=== PATIENT | male | born 1940 | race Two or more races ===

== ENCOUNTER 2023-12-12 11:56 | Emergency (ER) | payer OTHER ==
[~2023-12-12] VITALS: Ht 167.6 cm; Wt 52.2 kg
[2023-12-12 12:41] LABS: BASOPHILS % (AUTO) 0.4 % (0.0-2.0); EOSINOPHILS % (AUTO) 0.3 % (0.0-6.0); HEMATOCRIT 46 % (39-51); HEMOGLOBIN 15.3 g/dL (13.5-17.5); LYMPHOCYTES # (AUTO) 1.1 K/uL (0.8-4.8); LYMPHOCYTES % (AUTO) 9.1 % (20.0-44.0); MEAN CORPUSCULAR HEMOGLOBIN 29 PG (26.0-33.0); MEAN CORPUSCULAR HGB CONC 33 g/dl (31.0-36.0); MEAN CORPUSCULAR VOLUME 86 fL (80-96); MONOCYTES # (AUTO) 0.9 K/uL (0.1-1.30); MONOCYTES % (AUTO) 7.4 % (2.0-12.0); NEUTROPHILS # (AUTO) 9.8 K/uL (1.8-8.9); NEUTROPHILS % (AUTO) 82.8 % (43.0-81.0); PLATELET COUNT (AUTO) 186 K/uL (150-450); RED BLOOD CELL COUNT(AUTO) 5.34 MIL/uL (4.5-6.0); WHITE BLOOD COUNT (AUTO) 11.9 K/uL (4.3-11.0)
[2023-12-12 12:47] LABS: CREATININE 1.4 mg/dL (0.6-1.3); GLUCOSE 232 mg/dL (74-106); UREA NITROGEN, BLOOD 17 mg/dL (7-18)
[2023-12-12 12:50] LABS: INR 1.07 (0.91-1.10); PARTIAL THROMBOPLASTIN TIME 29.1 SEC (24.3-34.3); PROTHROMBIN TIME 11.3 SECS (9.2-11.1)
[2023-12-12 12:56] LABS: CARBON DIOXIDE 25 mmol/L (21-32); CHLORIDE 103 mmol/L (98-107); POTASSIUM 4.4 mmol/L (3.5-5.1); SODIUM SERUM 138 mmol/L (136-145)
[2023-12-12] MEDS: IV NS 0.9% 1,000 ML BAG IV ONE (13:01)
[2023-12-12] MEDS ORDERED: IOHEXOL-350 100 ML VIAL IV ONE (13:04)
[2023-12-12] MEDS ORDERED: IV NS 0.9% 250 ML IV ONE (13:05)
[2023-12-12 14:05] LABS: APPEARANCE,URINE SLIGHTLY CLOUDY (CLEAR); BILIRUBIN,URINE NEGATIVE (NEGATIVE); BLOOD, URINE 3+ Ery/uL (NEGATIVE); COLOR,URINE YELLOW (YELLOW); KETONES,URINE TRACE mg/dL (NEGATIVE); LEUKOCYTE ESTERASE ,URINE NEGATIVE (NEGATIVE); NITRITE, URINE NEGATIVE (NEGATIVE); PH,URINE 6.5 (5.0-8.0); PROTEIN,URINE 1+ mg/dl (NEGATIVE); UGLUCOSE NEGATIVE (NEGATIVE)
[2023-12-12 14:12] LABS: ADD URINE CULTURE NO; BACTERIA,URINE Rare /HPF (None Seen); RBC,URINE 21-50 /HPF (0-2); SQUAMOUS EPITHELIAL CELL,UR Rare /HPF (None Seen)
[2023-12-12 16:26] VITALS: BP 130/66; TEMP 99.3; O2SAT 99
[2023-12-13] MEDS ORDERED: DOCU100C36 PO (16:01)
[2023-12-13] MEDS ORDERED: ACET325T53 PO (16:01)
[2023-12-13] MEDS ORDERED: LISI-768 PO (16:01)
[2023-12-13] MEDS ORDERED: GABA-532 PO (16:01)
[2023-12-13] MEDS ORDERED: MULT-225 PO (16:01)
[2023-12-13] MEDS ORDERED: BISA10SU11 RC (16:01)
[2023-12-13] MEDS ORDERED: METF-440 PO (16:01)
[2023-12-13] MEDS ORDERED: GLIP5TAB13 PO (16:01)
[2023-12-13] MEDS ORDERED: ASPI-1420 PO (16:01)
[2023-12-13] MEDS ORDERED: INSU100I40 SQ (16:01)
[2023-12-13] MEDS ORDERED: CYAN100096 PO (16:01)
[2023-12-13] MEDS ORDERED: CARV6.252 PO (16:01)
[2023-12-13] MEDS ORDERED: ACET650S11 RC (16:01)
[2023-12-13] MEDS ORDERED: GLUC1KIT IJ (16:01)
[2023-12-13] MEDS ORDERED: TICA90TA PO (16:01)
[2023-12-13] MEDS ORDERED: HYDR12.55 PO (16:01)
[2023-12-16] MEDS ORDERED: LEVO500T90 PO (12:15)
== END 2023-12-12 16:27 ==
LOC: ER 11:58
DX: R31.9 Hematuria, unspecified (principal); I10 Essential (primary) hypertension; E11.9 Type 2 diabetes mellitus without complications; E78.5 Hyperlipidemia, unspecified; Z87.39 Personal history of other diseases of the musculoskeletal system and connective tissue
CPT/HCPCS: 99285; 74178; 96360; 85025; 80048; 81001; 36415; 85730; J7030; J7050; Q9967

== ENCOUNTER 2023-12-13 15:19 | Inpatient (IN) | payer OTHER ==
[~2023-12-13] VITALS: Ht 167.6 cm; Wt 67.1 kg
[2023-12-13] MEDS: VANCOMYCIN 1 GM in IV D5W 250 ML IV ONE (16:00)
[2023-12-13] MEDS ORDERED: GLUC1KIT IJ (16:01)
[2023-12-13] MEDS ORDERED: CYAN100096 PO (16:01)
[2023-12-13] MEDS ORDERED: GABA-532 PO (16:01)
[2023-12-13] MEDS ORDERED: TICA90TA PO (16:01)
[2023-12-13] MEDS ORDERED: CARV6.252 PO (16:01)
[2023-12-13] MEDS ORDERED: ACET650S11 RC (16:01)
[2023-12-13] MEDS ORDERED: ACET325T53 PO (16:01)
[2023-12-13] MEDS ORDERED: BISA10SU11 RC (16:01)
[2023-12-13] MEDS ORDERED: DOCU100C36 PO (16:01)
[2023-12-13] MEDS ORDERED: INSU100I40 SQ (16:01)
[2023-12-13] MEDS ORDERED: LISI-768 PO (16:01)
[2023-12-13] MEDS ORDERED: ASPI-1420 PO (16:01)
[2023-12-13] MEDS ORDERED: GLIP5TAB13 PO (16:01)
[2023-12-13] MEDS ORDERED: MULT-225 PO (16:01)
[2023-12-13] MEDS ORDERED: HYDR12.55 PO (16:01)
[2023-12-13] MEDS ORDERED: METF-440 PO (16:01)
[2023-12-13 16:21] LABS: BASOPHILS # (AUTO) 0.1 K/uL (0.0-0.2); BASOPHILS % (AUTO) 0.4 % (0.0-2.0); EOSINOPHILS % (AUTO) 0.2 % (0.0-6.0); HEMATOCRIT 43 % (39-51); HEMOGLOBIN 14.3 g/dL (13.5-17.5); LYMPHOCYTES # (AUTO) 1.1 K/uL (0.8-4.8); LYMPHOCYTES % (AUTO) 7.8 % (20.0-44.0); MEAN CORPUSCULAR HEMOGLOBIN 29 PG (26.0-33.0); MEAN CORPUSCULAR HGB CONC 33 g/dl (31.0-36.0); MEAN CORPUSCULAR VOLUME 87 fL (80-96); MONOCYTES # (AUTO) 1.2 K/uL (0.1-1.30); MONOCYTES % (AUTO) 8.5 % (2.0-12.0); NEUTROPHILS # (AUTO) 11.4 K/uL (1.8-8.9); NEUTROPHILS % (AUTO) 83.1 % (43.0-81.0); PLATELET COUNT (AUTO) 165 K/uL (150-450); RED BLOOD CELL COUNT(AUTO) 4.99 MIL/uL (4.5-6.0); RED CELL DISTRIBUTION WIDTH 15.2 % (11.5-15.0); WHITE BLOOD COUNT (AUTO) 13.7 K/uL (4.3-11.0)
[2023-12-13 16:28] LABS: CALCIUM, SERUM 8.9 mg/dL (8.5-10.1); CARBON DIOXIDE 25 mmol/L (21-32); CHLORIDE 104 mmol/L (98-107); CREATININE 1.6 mg/dL (0.6-1.3); GLUCOSE 168 mg/dL (74-106); POTASSIUM 3.9 mmol/L (3.5-5.1); SODIUM SERUM 137 mmol/L (136-145); UREA NITROGEN, BLOOD 23 mg/dL (7-18)
[2023-12-13] MEDS: CEFEPIME 1 GM in IV D5W 50 ML IV ONE (16:41)
[2023-12-13] MEDS: IV NS 0.9% 1,000 ML BAG IV ONE (16:42)
[2023-12-13 18:27] LABS: BILIRUBIN,URINE LARGE (NEGATIVE); BLOOD, URINE Large Ery/uL (NEGATIVE); COLOR,URINE YELLOW (YELLOW); KETONES,URINE 15 mg/dL (NEGATIVE); LEUKOCYTE ESTERASE ,URINE Trace (NEGATIVE); NITRITE, URINE Positive (NEGATIVE); PH,URINE 5.5 (5.0-8.0); PROTEIN,URINE >=300 mg/dl (NEGATIVE); UGLUCOSE 100 MG/DL mg/dL (NEGATIVE)
[2023-12-13 18:33] LABS: APPEARANCE,URINE HAZY (CLEAR)
[2023-12-13 18:57] LABS: RBC,URINE TOO NUMEROUS TO COUN /HPF (0-2)
[2023-12-13 18:58] LABS: ADD URINE CULTURE YES; BACTERIA,URINE Moderate /HPF (None Seen); SQUAMOUS EPITHELIAL CELL,UR None Seen /HPF (None Seen)
[2023-12-13 21:30] VITALS: BP 119/48; TEMP 99.1; O2SAT 99
[2023-12-13] MEDS ORDERED: GABAPENTIN 100 MG CAPSULE PO SCH (22:00)
[2023-12-13] MEDS ORDERED: ACETAMINOPHEN 325 MG TABLET PO PRN (22:00)
[2023-12-13] MEDS ORDERED: ONDANSETRON HCL/PF 4 MG/2 ML VIAL IVP PRN (22:00)
[2023-12-13] MEDS ORDERED: CARVEDILOL 6.25 MG TABLET PO SCH (22:00)
[2023-12-13 22:20] LABS: BILIRUBIN,TOTAL 2.2 mg/dL (0.2-1.0); TOTAL PROTEIN, SERUM 7.6 g/dL (6.4-8.2)
[2023-12-13] MEDS: IV NS 0.9% 1,000 ML IV PRN (22:57)
[2023-12-13] MEDS ORDERED: VANCOMYCIN 1 GM in IV D5W 250ml IV ONE (23:00)
[2023-12-13] MEDS: DOCUSATE SODIUM 100 MG CAPSULE PO SCH (23:18)
[2023-12-13] MEDS: glipiZIDE 5 MG TABLET PO SCH (23:18)
[2023-12-13] MEDS: BLOOD SUGAR DIAGNOSTIC 1 EACH STRIP IN SCH (23:23)
[2023-12-13] MEDS: INSULIN REGULAR, HUMAN 100 UNIT/ML 3 ML VIAL SQ PRN (23:24)
[2023-12-14 06:47] LABS: BASOPHILS % (AUTO) 0.1 % (0.0-2.0); EOSINOPHILS # (AUTO) 0.1 K/uL (0.0-0.7); EOSINOPHILS % (AUTO) 1.2 % (0.0-6.0); HEMATOCRIT 36 % (39-51); HEMOGLOBIN 12.4 g/dL (13.5-17.5); LYMPHOCYTES # (AUTO) 0.7 K/uL (0.8-4.8); LYMPHOCYTES % (AUTO) 9.6 % (20.0-44.0); MEAN CORPUSCULAR HEMOGLOBIN 30 PG (26.0-33.0); MEAN CORPUSCULAR HGB CONC 35 g/dl (31.0-36.0); MEAN CORPUSCULAR VOLUME 87 fL (80-96); MONOCYTES # (AUTO) 0.6 K/uL (0.1-1.30); MONOCYTES % (AUTO) 8.3 % (2.0-12.0); NEUTROPHILS # (AUTO) 5.8 K/uL (1.8-8.9); NEUTROPHILS % (AUTO) 80.8 % (43.0-81.0); PLATELET COUNT (AUTO) 123 K/uL (150-450); RED BLOOD CELL COUNT(AUTO) 4.14 MIL/uL (4.5-6.0); RED CELL DISTRIBUTION WIDTH 14.9 % (11.5-15.0); WHITE BLOOD COUNT (AUTO) 7.2 K/uL (4.3-11.0)
[2023-12-14 07:16] LABS: CALCIUM, SERUM 8.1 mg/dL (8.5-10.1); MAGNESIUM 1.9 mg/dL (1.8-2.4); PHOSPHORUS 1.9 mg/dL (2.5-4.9); POTASSIUM 3.4 mmol/L (3.5-5.1)
[2023-12-14 08:00] VITALS: BP 119/53; TEMP 98.2; O2SAT 99
[2023-12-14] MEDS: CYANOCOBALAMIN 500 MCG TABLET PO SCH (09:00)
[2023-12-14] MEDS: GABAPENTIN 100 MG CAPSULE PO SCH (09:00)
[2023-12-14] MEDS: LISINOPRIL (5MG) 5 MG TABLET PO SCH (09:00)
[2023-12-14] MEDS ORDERED: CEFEPIME 1 GM VIAL IM SCH ×2 (09:00→22:41)
[2023-12-14] MEDS: MULTIVIT W/MINERALS 1 TAB TABLET PO SCH (09:00)
[2023-12-14] MEDS: CARVEDILOL 6.25 MG TABLET PO SCH (09:00)
[2023-12-14] MEDS: HYDROCHLOROTHIAZIDE 25 MG TABLET PO SCH (09:00)
[2023-12-14] MEDS: CEFEPIME 1 GM in IV D5W 50 ML IV SCH (09:29)
[2023-12-14] MEDS: POTASSIUM CHLORIDE 20 MEQ TAB.PRT.SR PO SCH (10:00)
[2023-12-14] MEDS: K PHOS NEUTRAL 250 MG TABLET PO ONE (15:25)
[2023-12-14] MEDS: VANCOMYCIN 750 MG in IV D5W 250 ML IV SCH (15:29)
[2023-12-14 16:00] VITALS: BP 143/62; TEMP 99.3; O2SAT 99
[2023-12-14 20:00] VITALS: BP 119/51; TEMP 99; O2SAT 99
[2023-12-15] MEDS: DEXTROSE 50%-WATER 50 ML DISP.SYRIN IV PRN (06:33)
[2023-12-15 07:00] VITALS: BP 114/48; TEMP 98.8; O2SAT 100
[2023-12-15 07:04] LABS: BASOPHILS % (AUTO) 0.4 % (0.0-2.0); EOSINOPHILS # (AUTO) 0.1 K/uL (0.0-0.7); EOSINOPHILS % (AUTO) 2.2 % (0.0-6.0); HEMATOCRIT 34 % (39-51); HEMOGLOBIN 11.8 g/dL (13.5-17.5); LYMPHOCYTES # (AUTO) 0.6 K/uL (0.8-4.8); LYMPHOCYTES % (AUTO) 17.1 % (20.0-44.0); MEAN CORPUSCULAR HEMOGLOBIN 30 PG (26.0-33.0); MEAN CORPUSCULAR HGB CONC 35 g/dl (31.0-36.0); MEAN CORPUSCULAR VOLUME 86 fL (80-96); MONOCYTES # (AUTO) 0.5 K/uL (0.1-1.30); NEUTROPHILS # (AUTO) 2.4 K/uL (1.8-8.9); NEUTROPHILS % (AUTO) 66.3 % (43.0-81.0); PLATELET COUNT (AUTO) 134 K/uL (150-450); RED BLOOD CELL COUNT(AUTO) 3.96 MIL/uL (4.5-6.0); RED CELL DISTRIBUTION WIDTH 14.9 % (11.5-15.0); WHITE BLOOD COUNT (AUTO) 3.7 K/uL (4.3-11.0)
[2023-12-15 07:12] LABS: ALBUMIN 1.9 g/dL (3.4-5.0); BILIRUBIN,DIRECT 0.5 mg/dL (0.0-0.2); TOTAL PROTEIN, SERUM 5.5 g/dL (6.4-8.2)
[2023-12-15 07:20] LABS: CALCIUM, SERUM 7.6 mg/dL (8.5-10.1); CREATININE 0.8 mg/dL (0.6-1.3); MAGNESIUM 1.7 mg/dL (1.8-2.4); PHOSPHORUS 2.6 mg/dL (2.5-4.9); POTASSIUM 3.1 mmol/L (3.5-5.1)
[2023-12-15] MEDS: POTASSIUM CHLORIDE 20 MEQ POWDER PACKET PO ONE (08:38)
[2023-12-15] MEDS: MAGNESIUM OXIDE 400 MG TABLET PO ONE (08:42)
[2023-12-15 16:00] VITALS: BP 125/53; TEMP 98.4; O2SAT 98
[2023-12-15 20:00] VITALS: BP 120/76; TEMP 98.8; O2SAT 99
[2023-12-15 20:17] VITALS: BP 120/76; TEMP 98.8; O2SAT 99
[2023-12-16] MEDS: VANCOMYCIN 750 MG in IV D5W 250 ML IV SCH (03:05)
[2023-12-16 06:45] LABS: CALCIUM, SERUM 7.3 mg/dL (8.5-10.1); CREATININE 0.8 mg/dL (0.6-1.3); POTASSIUM 3.1 mmol/L (3.5-5.1)
[2023-12-16 07:00] VITALS: BP 118/63; TEMP 97.7; O2SAT 98
[2023-12-16] MEDS: POTASSIUM CHLORIDE 20 MEQ POWDER PACKET PO ONE (08:40)
[2023-12-16] MEDS ORDERED: LEVO500T90 PO (12:15)
[2023-12-16 16:30] VITALS: BP 124/56
== END 2023-12-16 17:37 | DRG 689 ==
LOC: ER 15:23 → MED 20:25
PROVIDERS: ADMIT Nurse Practitioner Acute Care; ATTEND Nurse Practitioner Acute Care
DX: N39.0 Urinary tract infection, site not specified (principal); N17.0 Acute kidney failure with tubular necrosis; N13.8 Other obstructive and reflux uropathy; N40.1 Benign prostatic hyperplasia with lower urinary tract symptoms; Z86.73 Personal history of transient ischemic attack (TIA), and cerebral infarction without residual deficits; B96.89 Other specified bacterial agents as the cause of diseases classified elsewhere; K76.9 Liver disease, unspecified; E11.40 Type 2 diabetes mellitus with diabetic neuropathy, unspecified; D64.9 Anemia, unspecified; K80.20 Calculus of gallbladder without cholecystitis without obstruction; M89.8X9 Other specified disorders of bone, unspecified site; E78.5 Hyperlipidemia, unspecified; E87.6 Hypokalemia; I10 Essential (primary) hypertension; Z79.4 Long term (current) use of insulin; Z79.84 Long term (current) use of oral hypoglycemic drugs; Z79.899 Other long term (current) drug therapy; R74.01 Elevation of levels of liver transaminase levels; R31.9 Hematuria, unspecified
CPT/HCPCS: 36415; 80048-TC; 80076-TC; 80202-TC; 81001; 82962-TC; 83735-TC; 84100-TC; 85025-TC; 87040-TC; 87081-TC; 87086-TC; 92526; 92611-TC; A4223; G0378; J0692; J1815; J3370; J3371; J7030; J7060

== ENCOUNTER 2024-11-09 18:18 | Inpatient (IN) | payer OTHER ==
[~2024-11-09] VITALS: Ht 165.1 cm; Wt 67.4 kg
[~2024-11-09 18:18] MED LIST: ACET325T53 PO; ACET650S11 RC; ASPI-1420 PO; BISA10SU11 RC; CARV6.252 PO; CYAN100096 PO; DOCU100C36 PO; GABA-532 PO; GLIP5TAB13 PO; GLUC1KIT IJ; HYDR12.55 PO; INSU100I40 SQ; LEVO500T90 PO; LISI-768 PO; METF-440 PO; MULT-225 PO; TICA90TA PO
[2024-11-09] MEDS ORDERED: VITS42.53 TP (19:34)
[2024-11-09] MEDS: IV NS 0.9% 1,000 ML BAG IV ONE ×2 (19:35→21:31)
[2024-11-09 19:50] LABS: BASOPHILS % (AUTO) 0.5 % (0.0-2.0); EOSINOPHILS # (AUTO) 0.5 K/uL (0.0-0.7); EOSINOPHILS % (AUTO) 8.5 % (0.0-6.0); HEMATOCRIT 44 % (39-51); HEMOGLOBIN 14.6 g/dL (13.5-17.5); LYMPHOCYTES # (AUTO) 1.2 K/uL (0.8-4.8); LYMPHOCYTES % (AUTO) 22.1 % (20.0-44.0); MEAN CORPUSCULAR HEMOGLOBIN 29 PG (26.0-33.0); MEAN CORPUSCULAR HGB CONC 33 g/dl (31.0-36.0); MEAN CORPUSCULAR VOLUME 88 fL (80-96); MONOCYTES # (AUTO) 0.7 K/uL (0.1-1.30); NEUTROPHILS # (AUTO) 3.2 K/uL (1.8-8.9); NEUTROPHILS % (AUTO) 56.9 % (43.0-81.0); PLATELET COUNT (AUTO) 204 K/uL (150-450); RED BLOOD CELL COUNT(AUTO) 5.04 MIL/uL (4.5-6.0); RED CELL DISTRIBUTION WIDTH 15.6 % (11.5-15.0); WHITE BLOOD COUNT (AUTO) 5.6 K/uL (4.3-11.0)
[2024-11-09 20:02] LABS: INR 1.01 (0.91-1.10); PARTIAL THROMBOPLASTIN TIME 26.8 SEC (24.3-34.3); PROTHROMBIN TIME 10.7 SECS (9.2-11.1)
[2024-11-09 20:13] LABS: LACTIC ACID 5.2 mmol/L (0.4-2.0)
[2024-11-09 20:20] LABS: CALCIUM, SERUM 9.1 mg/dL (8.5-10.1); CARBON DIOXIDE 22 mmol/L (21-32); CHLORIDE 104 mmol/L (98-107); CREATININE 1.1 mg/dL (0.6-1.3); GLUCOSE 112 mg/dL (74-106); POTASSIUM 4.2 mmol/L (3.5-5.1); SODIUM SERUM 138 mmol/L (136-145); UREA NITROGEN, BLOOD 13 mg/dL (7-18)
[2024-11-09] MEDS: PIPERACILLIN /TAZOBACTAM 3.375 G in IV D5W 50 ML IV ONE (21:00)
[2024-11-09] MEDS ORDERED: VANCOMYCIN 1 GM /D5W 250 ML PB IV ONE (21:30)
[2024-11-09] MEDS ORDERED: PIPERACI/TAZO 3.375GM/D5W 50ML PB IV ONE (21:30)
[2024-11-09] MEDS: VANCOMYCIN 1 GM in IV D5W 250 ML IV ONE (21:33)
[2024-11-09 21:56] LABS: BILIRUBIN,DIRECT 0.2 mg/dL (0.0-0.2); BILIRUBIN,TOTAL 0.5 mg/dL (0.2-1.0)
[2024-11-09] MEDS ORDERED: MAGNESIUM HYDROXIDE 30 ML UDC PO PRN (22:30)
[2024-11-09] MEDS ORDERED: ACETAMINOPHEN 325 MG TABLET PO PRN (22:30)
[2024-11-09] MEDS ORDERED: DEXTROSE 50%-WATER 50 ML DISP.SYRIN IV PRN (22:30)
[2024-11-09] MEDS ORDERED: ONDANSETRON HCL/PF 4 MG/2 ML VIAL IVP PRN (22:30)
[2024-11-09] MEDS ORDERED: HYDROCODONE/APAP 5/325MG TABLET PO PRN (22:30)
[2024-11-09] MEDS ORDERED: MAG HYDROX/AL HYDROX/SIMETH 30 ML UDC PO PRN (22:30)
[2024-11-10 01:25] VITALS: BP 139/64; TEMP 97.9; O2SAT 98
[2024-11-10] MEDS: IV NS 0.9% 1,000 ML IV PRN (03:21)
[2024-11-10] MEDS: BLOOD SUGAR DIAGNOSTIC 1 EACH STRIP IN SCH (06:37)
[2024-11-10] MEDS: INSULIN REGULAR, HUMAN 100 UNIT/ML 3 ML VIAL SQ PRN (06:37)
[2024-11-10 07:56] LABS: BASOPHILS % (AUTO) 0.6 % (0.0-2.0); EOSINOPHILS # (AUTO) 0.6 K/uL (0.0-0.7); EOSINOPHILS % (AUTO) 10.7 % (0.0-6.0); HEMATOCRIT 41 % (39-51); HEMOGLOBIN 13.8 g/dL (13.5-17.5); LYMPHOCYTES # (AUTO) 1.2 K/uL (0.8-4.8); LYMPHOCYTES % (AUTO) 21.3 % (20.0-44.0); MEAN CORPUSCULAR HEMOGLOBIN 29 PG (26.0-33.0); MEAN CORPUSCULAR HGB CONC 34 g/dl (31.0-36.0); MEAN CORPUSCULAR VOLUME 86 fL (80-96); MONOCYTES # (AUTO) 0.8 K/uL (0.1-1.30); MONOCYTES % (AUTO) 15.1 % (2.0-12.0); NEUTROPHILS # (AUTO) 2.9 K/uL (1.8-8.9); NEUTROPHILS % (AUTO) 52.3 % (43.0-81.0); PLATELET COUNT (AUTO) 181 K/uL (150-450); RED BLOOD CELL COUNT(AUTO) 4.84 MIL/uL (4.5-6.0); RED CELL DISTRIBUTION WIDTH 14.9 % (11.5-15.0); WHITE BLOOD COUNT (AUTO) 5.5 K/uL (4.3-11.0)
[2024-11-10 08:00] VITALS: BP 97/75; TEMP 98.3; O2SAT 94
[2024-11-10] MEDS: GLUCERNA SHAKE 237 ML CAN PO SCH (08:00)
[2024-11-10 08:05] LABS: CALCIUM, SERUM 8.5 mg/dL (8.5-10.1); CARBON DIOXIDE 24 mmol/L (21-32); CHLORIDE 108 mmol/L (98-107); CREATININE 0.9 mg/dL (0.6-1.3); GLUCOSE 71 mg/dL (74-106); POTASSIUM 3.8 mmol/L (3.5-5.1); SODIUM SERUM 140 mmol/L (136-145); UREA NITROGEN, BLOOD 11 mg/dL (7-18)
[2024-11-10] MEDS: CARVEDILOL 6.25 MG TABLET PO SCH (09:00)
[2024-11-10] MEDS: PANTOPRAZOLE 40 MG TABLET.DR PO SCH (09:06)
[2024-11-10] MEDS: TICAGRELOR 90 MG TABLET PO SCH (09:06)
[2024-11-10] MEDS: GABAPENTIN 100 MG CAPSULE PO SCH (09:07)
[2024-11-10] MEDS: CYANOCOBALAMIN 500 MCG TABLET PO SCH (09:08)
[2024-11-10] MEDS: LISINOPRIL (5MG) 5 MG TABLET PO SCH (09:08)
[2024-11-10 11:55] LABS: EOSINOPHILS % (MANUAL) 5 % (0-4); LYMPHOCYTES % (MANUAL) 12 % (16-48); MONOCYTES % (MANUAL) 6 % (0-11.0); NEUTROPHILS % (MANUAL) 77 (42-76)
[2024-11-10 11:58] LABS: PLATELET ESTIMATE ADEQUATE
[2024-11-10 16:00] VITALS: BP 100/71; TEMP 98.5; O2SAT 96
[2024-11-10 20:00] VITALS: BP 131/57; TEMP 97.5; O2SAT 99
[2024-11-10] MEDS: VANCOMYCIN 1 GM in IV D5W 250ml IV SCH (20:15)
[2024-11-11 07:00] LABS: CALCIUM, SERUM 8.3 mg/dL (8.5-10.1); POTASSIUM 3.7 mmol/L (3.5-5.1)
[2024-11-11 08:00] VITALS: BP 136/51; TEMP 97.9; O2SAT 98
[2024-11-11] MEDS: Z GUARD REMEDY 4 OZ OINT TP PRN (09:34)
[2024-11-11 16:00] VITALS: BP 130/56; TEMP 97.9; O2SAT 96
[2024-11-11 20:00] VITALS: BP 139/70; TEMP 98.4; O2SAT 100
[2024-11-11 21:27] VITALS: BP 139/70; TEMP 98.4; O2SAT 100
[2024-11-12 06:58] LABS: CALCIUM, SERUM 8.3 mg/dL (8.5-10.1); CREATININE 0.8 mg/dL (0.6-1.3); POTASSIUM 3.1 mmol/L (3.5-5.1)
[2024-11-12 08:34] VITALS: BP 148/68; TEMP 98.1; O2SAT 100
[2024-11-12] MEDS: POTASSIUM CHLORIDE 20 MEQ TAB.PRT.SR PO SCH (09:56)
[2024-11-12 12:04] LABS: THYROID STIMULATING HORMONE 1.84 uIU/mL (0.358-3.74)
[2024-11-12] MEDS: VANCOMYCIN 750 MG in IV D5W 250 ML IV SCH (12:10)
[2024-11-12 16:06] VITALS: BP 135/52; TEMP 97.9; O2SAT 100
[2024-11-12 20:00] VITALS: BP 133/55; TEMP 97.9; O2SAT 100
[2024-11-13 05:07] LABS: FOLIC ACID 13.2 ng/mL (>3.0)
[2024-11-13 06:36] LABS: CALCIUM, SERUM 7.8 mg/dL (8.5-10.1); CREATININE 0.8 mg/dL (0.6-1.3); POTASSIUM 3.4 mmol/L (3.5-5.1)
[2024-11-13 08:00] VITALS: BP 112/71; TEMP 98.4; O2SAT 98
[2024-11-13] MEDS: POTASSIUM CHLORIDE 20 MEQ TAB.PRT.SR PO SCH (10:20)
[2024-11-13 16:00] VITALS: BP 130/57; TEMP 98.2; O2SAT 99
[2024-11-13 20:00] VITALS: BP 100/58; TEMP 98.1; O2SAT 98
[2024-11-13] MEDS: HEPARIN SODIUM, PORCINE 5000 UNITS/1 ML VIAL SQ SCH (21:35)
[2024-11-14 06:41] LABS: BASOPHILS % (AUTO) 0.9 % (0.0-2.0); EOSINOPHILS # (AUTO) 0.6 K/uL (0.0-0.7); EOSINOPHILS % (AUTO) 13.2 % (0.0-6.0); HEMATOCRIT 38 % (39-51); HEMOGLOBIN 13.4 g/dL (13.5-17.5); LYMPHOCYTES # (AUTO) 1.1 K/uL (0.8-4.8); LYMPHOCYTES % (AUTO) 24.8 % (20.0-44.0); MEAN CORPUSCULAR HEMOGLOBIN 30 PG (26.0-33.0); MEAN CORPUSCULAR HGB CONC 35 g/dl (31.0-36.0); MEAN CORPUSCULAR VOLUME 85 fL (80-96); MONOCYTES # (AUTO) 0.6 K/uL (0.1-1.30); MONOCYTES % (AUTO) 13.1 % (2.0-12.0); NEUTROPHILS # (AUTO) 2.2 K/uL (1.8-8.9); PLATELET COUNT (AUTO) 162 K/uL (150-450); RED BLOOD CELL COUNT(AUTO) 4.52 MIL/uL (4.5-6.0); RED CELL DISTRIBUTION WIDTH 14.9 % (11.5-15.0); WHITE BLOOD COUNT (AUTO) 4.5 K/uL (4.3-11.0)
[2024-11-14 07:01] LABS: INR 1.03 (0.91-1.10); PROTHROMBIN TIME 10.9 SECS (9.2-11.1)
[2024-11-14 07:16] LABS: CALCIUM, SERUM 8.4 mg/dL (8.5-10.1); CREATININE 0.9 mg/dL (0.6-1.3); MAGNESIUM 2.1 mg/dL (1.8-2.4); POTASSIUM 3.9 mmol/L (3.5-5.1)
[2024-11-14] MEDS ORDERED: HEPA50008 SQ (12:01)
[2024-11-14 17:00] VITALS: BP 128/63
[2024-11-16 04:07] LABS: VITAMIN B1 THIAMINE,WB 142.7 nmol/L (66.5-200.0)
== END 2024-11-14 18:55 | DRG 299 ==
LOC: ER 19:05 → MED 21:52
PROVIDERS: ADMIT Nurse Practitioner Acute Care; ATTEND Nurse Practitioner Family
DX: E11.51 Type 2 diabetes mellitus with diabetic peripheral angiopathy without gangrene (principal); G93.41 Metabolic encephalopathy; M86.8X7 Other osteomyelitis, ankle and foot; D68.59 Other primary thrombophilia; I69.354 Hemiplegia and hemiparesis following cerebral infarction affecting left non-dominant side; E11.69 Type 2 diabetes mellitus with other specified complication; I77.89 Other specified disorders of arteries and arterioles; E78.5 Hyperlipidemia, unspecified; B35.3 Tinea pedis; E11.42 Type 2 diabetes mellitus with diabetic polyneuropathy; I10 Essential (primary) hypertension; I25.10 Atherosclerotic heart disease of native coronary artery without angina pectoris; Z79.4 Long term (current) use of insulin; Z79.84 Long term (current) use of oral hypoglycemic drugs; N40.0 Benign prostatic hyperplasia without lower urinary tract symptoms; L60.2 Onychogryphosis; I25.2 Old myocardial infarction; Z66 Do not resuscitate; Z74.01 Bed confinement status; B35.1 Tinea unguium; F03.90 Unspecified dementia, unspecified severity, without behavioral disturbance, psychotic disturbance, mood disturbance, and anxiety; Z53.8 Procedure and treatment not carried out for other reasons
CPT/HCPCS: 36415; 70450-TC; 71045-TC; 73630-TC; 80048-TC; 80202-TC; 82247-TC; 82248-TC; 82607-TC; 82962-TC; 83605-TC; 83735-TC; 83921; 84100-TC; 84425; 84443-TC; 85025-TC; 85610-TC; 85652-TC; 85730-TC; 86140-TC; 87040-TC; 87081-TC; 92526; 92611-TC; 93970-TC; 97110-TC; 97112-TC; 97530-TC; A4223; G0378; J1644; J1815; J2543; J3370; J3371; J7030; J7060

== ENCOUNTER 2024-11-29 19:35 | Inpatient (IN) | payer OTHER ==
[~2024-11-29] VITALS: Ht 162.6 cm; Wt 52.9 kg
[~2024-11-29 19:35] MED LIST changes: +HEPA50008 SQ; -LEVO500T90 PO; +VITS42.53 TP
[2024-11-29] MEDS ORDERED: CEFEPIME 1 GM VIAL ONE (20:04)
[2024-11-29] MEDS ORDERED: VANCOMYCIN 1 GM /D5W 250 ML PB IV ONE (20:04)
[2024-11-29] MEDS: IV NS 0.9% 1,000 ML BAG IV ONE (20:06)
[2024-11-29] MEDS: CEFEPIME 1 GM in IV D5W 50 ML IV ONE (20:07)
[2024-11-29 20:17] LABS: BASOPHILS % (AUTO) 0.9 % (0.0-2.0); EOSINOPHILS # (AUTO) 0.7 K/uL (0.0-0.7); EOSINOPHILS % (AUTO) 16.4 % (0.0-6.0); HEMATOCRIT 40 % (39-51); HEMOGLOBIN 13.2 g/dL (13.5-17.5); LYMPHOCYTES # (AUTO) 1.1 K/uL (0.8-4.8); LYMPHOCYTES % (AUTO) 26.5 % (20.0-44.0); MEAN CORPUSCULAR HEMOGLOBIN 29 PG (26.0-33.0); MEAN CORPUSCULAR HGB CONC 33 g/dl (31.0-36.0); MEAN CORPUSCULAR VOLUME 86 fL (80-96); MONOCYTES # (AUTO) 0.5 K/uL (0.1-1.30); NEUTROPHILS # (AUTO) 1.8 K/uL (1.8-8.9); NEUTROPHILS % (AUTO) 44.2 % (43.0-81.0); PLATELET COUNT (AUTO) 158 K/uL (150-450); RED CELL DISTRIBUTION WIDTH 15.6 % (11.5-15.0)
[2024-11-29 20:22] LABS: CALCIUM, SERUM 8.5 mg/dL (8.5-10.1); CARBON DIOXIDE 25 mmol/L (21-32); CHLORIDE 105 mmol/L (98-107); CREATININE 1.1 mg/dL (0.6-1.3); GLUCOSE 318 mg/dL (74-106); POTASSIUM 4.4 mmol/L (3.5-5.1); SODIUM SERUM 139 mmol/L (136-145); UREA NITROGEN, BLOOD 11 mg/dL (7-18)
[2024-11-29 20:28] LABS: ALANINE AMINOTRANSFERASE 33 U/L (12-78); ALBUMIN 3.1 g/dL (3.4-5.0); ALKALINE PHOSPHATASE 98 U/L (46-116); ASPARTATE AMINOTRANSFERASE 24 U/L (15-37); BILIRUBIN,DIRECT 0.2 mg/dL (0.0-0.2); BILIRUBIN,TOTAL 0.4 mg/dL (0.2-1.0); TOTAL PROTEIN, SERUM 7.2 g/dL (6.4-8.2)
[2024-11-29 20:40] LABS: INR 1.02 (0.91-1.10); PROTHROMBIN TIME 10.8 SECS (9.2-11.1)
[2024-11-29 20:44] LABS: LACTIC ACID 2.7 mmol/L (0.4-2.0)
[2024-11-29] MEDS: VANCOMYCIN 1 GM in IV D5W 250 ML IV ONE (20:48)
[2024-11-29 20:54] LABS: APPEARANCE,URINE CLEAR (CLEAR); BILIRUBIN,URINE NEGATIVE (NEGATIVE); BLOOD, URINE NEGATIVE Ery/uL (NEGATIVE); COLOR,URINE YELLOW (YELLOW); KETONES,URINE NEGATIVE (NEGATIVE); LEUKOCYTE ESTERASE ,URINE NEGATIVE (NEGATIVE); NITRITE, URINE NEGATIVE (NEGATIVE); PH,URINE 6.5 (5.0-8.0); PROTEIN,URINE NEGATIVE (NEGATIVE); UGLUCOSE 2+ mg/dL (NEGATIVE)
[2024-11-29 22:06] LABS: ADD URINE CULTURE NO; BACTERIA,URINE None seen /HPF (None Seen); RBC,URINE 0-2 /HPF (0-2); WBC,URINE 0-2 /HPF (0-3)
[2024-11-29 22:07] LABS: MUCUS,URINE Few /LPF (None Seen)
[2024-11-29 23:00] VITALS: BP 124/57; TEMP 97.5; O2SAT 100
[2024-11-29] MEDS ORDERED: ONDANSETRON HCL/PF 4 MG/2 ML VIAL IVP PRN (23:30)
[2024-11-29] MEDS ORDERED: MAGNESIUM HYDROXIDE 30 ML UDC PO PRN (23:30)
[2024-11-29] MEDS ORDERED: DEXTROSE 50%-WATER 50 ML DISP.SYRIN IV PRN (23:30)
[2024-11-29] MEDS ORDERED: MAG HYDROX/AL HYDROX/SIMETH 30 ML UDC PO PRN (23:30)
[2024-11-29] MEDS ORDERED: BISACODYL SUPP (10 MG) 10 MG/SUPP.RECT SUPP.RECT RC PRN (23:30)
[2024-11-29] MEDS ORDERED: Z GUARD REMEDY 4 OZ OINT TP PRN (23:30)
[2024-11-30 04:00] VITALS: BP 126/98; TEMP 97.7; O2SAT 99
[2024-11-30 04:05] VITALS: BP 124/57; TEMP 97.5
[2024-11-30 05:53] LABS: BASOPHILS % (AUTO) 0.7 % (0.0-2.0); EOSINOPHILS # (AUTO) 0.9 K/uL (0.0-0.7); EOSINOPHILS % (AUTO) 16.5 % (0.0-6.0); HEMATOCRIT 41 % (39-51); HEMOGLOBIN 13.6 g/dL (13.5-17.5); LYMPHOCYTES # (AUTO) 1.1 K/uL (0.8-4.8); LYMPHOCYTES % (AUTO) 21.1 % (20.0-44.0); MEAN CORPUSCULAR HEMOGLOBIN 28 PG (26.0-33.0); MEAN CORPUSCULAR HGB CONC 33 g/dl (31.0-36.0); MEAN CORPUSCULAR VOLUME 85 fL (80-96); MONOCYTES # (AUTO) 0.6 K/uL (0.1-1.30); MONOCYTES % (AUTO) 10.9 % (2.0-12.0); NEUTROPHILS # (AUTO) 2.7 K/uL (1.8-8.9); NEUTROPHILS % (AUTO) 50.8 % (43.0-81.0); PLATELET COUNT (AUTO) 169 K/uL (150-450); RED BLOOD CELL COUNT(AUTO) 4.82 MIL/uL (4.5-6.0); RED CELL DISTRIBUTION WIDTH 15.6 % (11.5-15.0); WHITE BLOOD COUNT (AUTO) 5.3 K/uL (4.3-11.0)
[2024-11-30 06:07] LABS: CALCIUM, SERUM 8.6 mg/dL (8.5-10.1); CREATININE 0.9 mg/dL (0.6-1.3); MAGNESIUM 1.9 mg/dL (1.8-2.4); PHOSPHORUS 3.3 mg/dL (2.5-4.9); POTASSIUM 3.8 mmol/L (3.5-5.1)
[2024-11-30] MEDS: BLOOD SUGAR DIAGNOSTIC 1 EACH STRIP IN SCH (06:47)
[2024-11-30 08:00] VITALS: BP 143/100; TEMP 98.6; O2SAT 96
[2024-11-30] MEDS: PANTOPRAZOLE 40 MG TABLET.DR PO SCH (08:15)
[2024-11-30] MEDS: ASPIRIN EC 81 MG TABLET.DR PO SCH (08:30)
[2024-11-30] MEDS: MULTIVITAMINS,THERAGRAN 1 UDTAB TABLET PO SCH (08:30)
[2024-11-30] MEDS: LISINOPRIL (5MG) 5 MG TABLET PO SCH (08:30)
[2024-11-30] MEDS: TICAGRELOR 90 MG TABLET PO SCH (08:30)
[2024-11-30] MEDS: HYDROCHLOROTHIAZIDE 25 MG TABLET PO SCH (08:32)
[2024-11-30] MEDS: CARVEDILOL 6.25 MG TABLET PO SCH (08:34)
[2024-11-30] MEDS: CYANOCOBALAMIN 500 MCG TABLET PO SCH (08:35)
[2024-11-30] MEDS: VITAMINS A AND D 56.7 GM TUBE TP SCH (08:37)
[2024-11-30] MEDS: HEPARIN SODIUM, PORCINE 5000 UNITS/1 ML VIAL SQ SCH (08:37)
[2024-11-30] MEDS: DOCUSATE SODIUM 100 MG CAPSULE PO SCH (08:39)
[2024-11-30] MEDS ORDERED: CARVEDILOL 6.25 MG TABLET PO SCH (09:00)
[2024-11-30] MEDS ORDERED: VITAMINS A AND D 56.7 GM TUBE TP SCH (09:00)
[2024-11-30 12:00] VITALS: BP 138/60; TEMP 98.6; O2SAT 96
[2024-11-30] MEDS: INSULIN REGULAR, HUMAN 100 UNIT/ML 3 ML VIAL SQ PRN (12:04)
[2024-11-30 16:00] VITALS: BP 158/98; TEMP 98.2; O2SAT 99
[2024-11-30 20:00] VITALS: BP 149/60; TEMP 97.9; O2SAT 97
[2024-12-01 06:31] LABS: BASOPHILS % (AUTO) 0.9 % (0.0-2.0); EOSINOPHILS # (AUTO) 0.9 K/uL (0.0-0.7); EOSINOPHILS % (AUTO) 15.6 % (0.0-6.0); HEMATOCRIT 43 % (39-51); LYMPHOCYTES # (AUTO) 1.1 K/uL (0.8-4.8); LYMPHOCYTES % (AUTO) 19.5 % (20.0-44.0); MEAN CORPUSCULAR HEMOGLOBIN 28 PG (26.0-33.0); MEAN CORPUSCULAR HGB CONC 33 g/dl (31.0-36.0); MEAN CORPUSCULAR VOLUME 85 fL (80-96); MONOCYTES # (AUTO) 0.6 K/uL (0.1-1.30); MONOCYTES % (AUTO) 10.1 % (2.0-12.0); NEUTROPHILS # (AUTO) 3.1 K/uL (1.8-8.9); NEUTROPHILS % (AUTO) 53.9 % (43.0-81.0); PLATELET COUNT (AUTO) 176 K/uL (150-450); RED BLOOD CELL COUNT(AUTO) 5.04 MIL/uL (4.5-6.0); RED CELL DISTRIBUTION WIDTH 15.4 % (11.5-15.0); WHITE BLOOD COUNT (AUTO) 5.8 K/uL (4.3-11.0)
[2024-12-01 06:52] LABS: ALBUMIN 3.2 g/dL (3.4-5.0); BILIRUBIN,TOTAL 0.8 mg/dL (0.2-1.0); CALCIUM, SERUM 9.1 mg/dL (8.5-10.1); CREATININE 0.9 mg/dL (0.6-1.3); PHOSPHORUS 3.8 mg/dL (2.5-4.9); POTASSIUM 3.7 mmol/L (3.5-5.1); TOTAL PROTEIN, SERUM 7.3 g/dL (6.4-8.2)
[2024-12-01 08:00] VITALS: BP 137/70; TEMP 97.9; O2SAT 98
[2024-12-01 16:00] VITALS: BP 123/54; TEMP 97.5; O2SAT 99
[2024-12-01] MEDS ORDERED: INSULIN REGULAR, HUMAN 100 UNIT/ML 3 ML VIAL SQ PRN (16:30)
[2024-12-01] MEDS ORDERED: DEXTROSE 50%-WATER 50 ML DISP.SYRIN IV PRN (16:30)
[2024-12-01] MEDS ORDERED: BLOOD SUGAR DIAGNOSTIC 1 EACH STRIP IN SCH (17:30)
[2024-12-01 20:00] VITALS: BP 137/54; TEMP 97.7; O2SAT 100
[2024-12-01] MEDS: ACETAMINOPHEN 325 MG TABLET PO PRN (23:03)
[2024-12-02] VITALS: BP 137/54; TEMP 97.7; O2SAT 100
[2024-12-02 06:50] LABS: BASOPHILS % (AUTO) 0.6 % (0.0-2.0); EOSINOPHILS # (AUTO) 0.8 K/uL (0.0-0.7); EOSINOPHILS % (AUTO) 14.7 % (0.0-6.0); HEMATOCRIT 41 % (39-51); HEMOGLOBIN 14.2 g/dL (13.5-17.5); LYMPHOCYTES # (AUTO) 1.1 K/uL (0.8-4.8); MEAN CORPUSCULAR HEMOGLOBIN 29 PG (26.0-33.0); MEAN CORPUSCULAR HGB CONC 35 g/dl (31.0-36.0); MEAN CORPUSCULAR VOLUME 84 fL (80-96); MONOCYTES # (AUTO) 0.6 K/uL (0.1-1.30); NEUTROPHILS # (AUTO) 2.8 K/uL (1.8-8.9); NEUTROPHILS % (AUTO) 52.7 % (43.0-81.0); PLATELET COUNT (AUTO) 193 K/uL (150-450); RED BLOOD CELL COUNT(AUTO) 4.89 MIL/uL (4.5-6.0); RED CELL DISTRIBUTION WIDTH 15.4 % (11.5-15.0); WHITE BLOOD COUNT (AUTO) 5.3 K/uL (4.3-11.0)
[2024-12-02 07:03] LABS: ALBUMIN 3.3 g/dL (3.4-5.0); BILIRUBIN,TOTAL 0.8 mg/dL (0.2-1.0); CALCIUM, SERUM 8.9 mg/dL (8.5-10.1); PHOSPHORUS 3.7 mg/dL (2.5-4.9); POTASSIUM 3.7 mmol/L (3.5-5.1); TOTAL PROTEIN, SERUM 7.5 g/dL (6.4-8.2)
[2024-12-02 08:00] VITALS: BP 156/67; TEMP 97.7; O2SAT 100
[2024-12-02] MEDS ORDERED: IOHEXOL-350 100 ML VIAL IV ONE (13:41)
[2024-12-02 16:00] VITALS: BP 123/62; TEMP 97.5; O2SAT 99
[2024-12-02 20:00] VITALS: BP 121/58; TEMP 98.6; O2SAT 99
[2024-12-03] VITALS: TEMP 97.5
[2024-12-03 07:06] LABS: BASOPHILS % (AUTO) 0.7 % (0.0-2.0); EOSINOPHILS # (AUTO) 0.5 K/uL (0.0-0.7); EOSINOPHILS % (AUTO) 10.2 % (0.0-6.0); HEMATOCRIT 43 % (39-51); HEMOGLOBIN 14.3 g/dL (13.5-17.5); LYMPHOCYTES # (AUTO) 1.2 K/uL (0.8-4.8); MEAN CORPUSCULAR HEMOGLOBIN 28 PG (26.0-33.0); MEAN CORPUSCULAR HGB CONC 33 g/dl (31.0-36.0); MEAN CORPUSCULAR VOLUME 85 fL (80-96); MONOCYTES # (AUTO) 0.6 K/uL (0.1-1.30); MONOCYTES % (AUTO) 10.5 % (2.0-12.0); NEUTROPHILS # (AUTO) 3.1 K/uL (1.8-8.9); NEUTROPHILS % (AUTO) 56.6 % (43.0-81.0); PLATELET COUNT (AUTO) 190 K/uL (150-450); RED BLOOD CELL COUNT(AUTO) 5.11 MIL/uL (4.5-6.0); RED CELL DISTRIBUTION WIDTH 15.3 % (11.5-15.0); WHITE BLOOD COUNT (AUTO) 5.4 K/uL (4.3-11.0)
[2024-12-03 07:18] LABS: ALBUMIN 3.3 g/dL (3.4-5.0); BILIRUBIN,TOTAL 0.9 mg/dL (0.2-1.0); CALCIUM, SERUM 9.2 mg/dL (8.5-10.1); CREATININE 1.1 mg/dL (0.6-1.3); MAGNESIUM 2.1 mg/dL (1.8-2.4); PHOSPHORUS 4.4 mg/dL (2.5-4.9); POTASSIUM 3.5 mmol/L (3.5-5.1); TOTAL PROTEIN, SERUM 7.6 g/dL (6.4-8.2)
[2024-12-03 08:00] VITALS: BP 129/70; TEMP 97.7; O2SAT 100
[2024-12-03] MEDS: ZOSYN IVPB 3.375 G in IV D5W 50ml IV ONE (15:16)
[2024-12-03 18:00] VITALS: BP 108/53; TEMP 98.2; O2SAT 100
[2024-12-03] MEDS: PIPERACILLIN /TAZOBACTAM 3.375 G in IV D5W 100 ML IV SCH (20:50)
[2024-12-04] VITALS: BP 115/63; TEMP 98.1; O2SAT 99
[2024-12-04 04:00] VITALS: BP 144/60; TEMP 98.2; O2SAT 99
[2024-12-04 07:21] LABS: BASOPHILS % (AUTO) 0.7 % (0.0-2.0); EOSINOPHILS # (AUTO) 0.8 K/uL (0.0-0.7); HEMATOCRIT 43 % (39-51); HEMOGLOBIN 14.5 g/dL (13.5-17.5); LYMPHOCYTES # (AUTO) 1.1 K/uL (0.8-4.8); LYMPHOCYTES % (AUTO) 21.2 % (20.0-44.0); MEAN CORPUSCULAR HEMOGLOBIN 29 PG (26.0-33.0); MEAN CORPUSCULAR HGB CONC 34 g/dl (31.0-36.0); MEAN CORPUSCULAR VOLUME 85 fL (80-96); MONOCYTES # (AUTO) 0.6 K/uL (0.1-1.30); MONOCYTES % (AUTO) 11.7 % (2.0-12.0); NEUTROPHILS # (AUTO) 2.5 K/uL (1.8-8.9); NEUTROPHILS % (AUTO) 50.4 % (43.0-81.0); PLATELET COUNT (AUTO) 194 K/uL (150-450); RED BLOOD CELL COUNT(AUTO) 5.08 MIL/uL (4.5-6.0); RED CELL DISTRIBUTION WIDTH 15.4 % (11.5-15.0)
[2024-12-04 07:22] LABS: ALBUMIN 3.3 g/dL (3.4-5.0); BILIRUBIN,TOTAL 0.8 mg/dL (0.2-1.0); CALCIUM, SERUM 9.1 mg/dL (8.5-10.1); CREATININE 1.1 mg/dL (0.6-1.3); MAGNESIUM 2.1 mg/dL (1.8-2.4); PHOSPHORUS 4.3 mg/dL (2.5-4.9); POTASSIUM 3.8 mmol/L (3.5-5.1); TOTAL PROTEIN, SERUM 7.6 g/dL (6.4-8.2)
[2024-12-04 08:00] VITALS: BP 133/56; TEMP 97.5; O2SAT 100
[2024-12-04 16:00] VITALS: BP 130/60; TEMP 97.5; O2SAT 100
[2024-12-05] VITALS (26 sets, daily range): BP systolic 101–137; BP diastolic 49–81; TEMP 97.7–98.1; O2SAT 97–100
[2024-12-05] MEDS: IV NS 0.9% 1,000 ML BAG IV SCH (06:11)
[2024-12-05 07:13] LABS: BASOPHILS % (AUTO) 0.7 % (0.0-2.0); EOSINOPHILS # (AUTO) 1.1 K/uL (0.0-0.7); EOSINOPHILS % (AUTO) 21.7 % (0.0-6.0); HEMATOCRIT 43 % (39-51); HEMOGLOBIN 14.5 g/dL (13.5-17.5); LYMPHOCYTES # (AUTO) 1.2 K/uL (0.8-4.8); MEAN CORPUSCULAR HEMOGLOBIN 29 PG (26.0-33.0); MEAN CORPUSCULAR HGB CONC 34 g/dl (31.0-36.0); MEAN CORPUSCULAR VOLUME 86 fL (80-96); MONOCYTES # (AUTO) 0.6 K/uL (0.1-1.30); MONOCYTES % (AUTO) 11.8 % (2.0-12.0); NEUTROPHILS # (AUTO) 2.1 K/uL (1.8-8.9); NEUTROPHILS % (AUTO) 42.8 % (43.0-81.0); PLATELET COUNT (AUTO) 192 K/uL (150-450); RED CELL DISTRIBUTION WIDTH 15.4 % (11.5-15.0)
[2024-12-05 07:27] LABS: INR 1.02 (0.91-1.10); PARTIAL THROMBOPLASTIN TIME 32.1 SEC (24.3-34.3); PROTHROMBIN TIME 10.8 SECS (9.2-11.1)
[2024-12-05 07:34] LABS: CALCIUM, SERUM 9.3 mg/dL (8.5-10.1); CREATININE 1.3 mg/dL (0.6-1.3); MAGNESIUM 2.1 mg/dL (1.8-2.4); PHOSPHORUS 4.1 mg/dL (2.5-4.9); POTASSIUM 3.8 mmol/L (3.5-5.1)
[2024-12-05] MEDS ORDERED: IODIXANOL 150 ML IV ONE (09:54)
[2024-12-05] MEDS ORDERED: IV SET PRIMARY PUMP SET 1 EA INFUS.SET MC ONE (09:54)
[2024-12-05] MEDS ORDERED: IV NS 0.9% 500 ML IV ONE (09:54)
[2024-12-05] MEDS ORDERED: LIDOCAINE HCL/MPF 1% 30 ML VIAL IJ ONE (09:54)
[2024-12-05 11:16] LABS: EOSINOPHILS % (MANUAL) 20 % (0-4); LYMPHOCYTES % (MANUAL) 18 % (16-48); MONOCYTES % (MANUAL) 2 % (0-11.0); NEUTROPHILS % (MANUAL) 60 (42-76); PLATELET ESTIMATE ADEQUATE
[2024-12-05] MEDS ORDERED: SECONDARY IV SET 1 EA INFUS.SET MC ONE (11:17)
[2024-12-05] MEDS ORDERED: HEPARIN SODIUM, PORCINE 5000 UNITS/1 ML VIAL ONE (11:28)
[2024-12-05] MEDS ORDERED: HEPARIN SODIUM, PORCINE 1,000 UNIT/ML VIAL ONE (11:29)
[2024-12-05] MEDS ORDERED: CEFAZOLIN 2 GM in IV D5W 100 ML IV ONE (11:30)
[2024-12-05] MEDS: IV NS 0.9% 1,000 ML BAG IV PRN (14:53)
[2024-12-05] MEDS: IV NS 0.9% 500 ML IV ONE (15:02)
[2024-12-05] MEDS: CEFAZOLIN 1 GM in IV D5W 50 ML IV ONE (19:19)
[2024-12-05] MEDS ORDERED: CEFAZOLIN 1 GM in IV D5W 50 ML IV ONE (19:30)
[2024-12-06] VITALS (27 sets, daily range): BP systolic 101–155; BP diastolic 45–61; TEMP 97.5–98.2; O2SAT 97–100
[2024-12-06] MEDS: CEFAZOLIN 1 GM in IV D5W 50 ML IV ONE (02:50)
[2024-12-06] MEDS: IV NS 0.9% 1,000 ML IV PRN (03:18)
[2024-12-06] MEDS ORDERED: CEFAZOLIN 1 GM in IV D5W 50 ML IV ONE (03:30)
[2024-12-06] MEDS ORDERED: IV NS 0.9% 1,000 ML BAG IV PRN (03:30)
[2024-12-06 04:24] LABS: BASOPHILS % (AUTO) 0.4 % (0.0-2.0); EOSINOPHILS # (AUTO) 0.7 K/uL (0.0-0.7); EOSINOPHILS % (AUTO) 13.8 % (0.0-6.0); HEMATOCRIT 38 % (39-51); HEMOGLOBIN 12.8 g/dL (13.5-17.5); LYMPHOCYTES # (AUTO) 0.8 K/uL (0.8-4.8); LYMPHOCYTES % (AUTO) 16.9 % (20.0-44.0); MEAN CORPUSCULAR HEMOGLOBIN 29 PG (26.0-33.0); MEAN CORPUSCULAR HGB CONC 34 g/dl (31.0-36.0); MEAN CORPUSCULAR VOLUME 86 fL (80-96); MONOCYTES # (AUTO) 0.6 K/uL (0.1-1.30); MONOCYTES % (AUTO) 11.7 % (2.0-12.0); NEUTROPHILS # (AUTO) 2.8 K/uL (1.8-8.9); NEUTROPHILS % (AUTO) 57.2 % (43.0-81.0); PLATELET COUNT (AUTO) 163 K/uL (150-450); RED BLOOD CELL COUNT(AUTO) 4.43 MIL/uL (4.5-6.0)
[2024-12-06 04:45] LABS: CALCIUM, SERUM 8.3 mg/dL (8.5-10.1); CARBON DIOXIDE 26 mmol/L (21-32); CHLORIDE 107 mmol/L (98-107); CREATININE 1.5 mg/dL (0.6-1.3); GLUCOSE 136 mg/dL (74-106); POTASSIUM 3.9 mmol/L (3.5-5.1); SODIUM SERUM 139 mmol/L (136-145); UREA NITROGEN, BLOOD 14 mg/dL (7-18)
[2024-12-06 07:43] LABS: THYROID STIMULATING HORMONE 2.67 uIU/mL (0.358-3.74)
[2024-12-07] VITALS: BP_SYST 128; BP_SYST 95; BP_DIAS 60; BP_DIAS 78; TEMP 98.6; O2SAT 100
[2024-12-07 04:00] VITALS: BP 141/60; TEMP 98.4; O2SAT 100
[2024-12-07 06:19] LABS: BASOPHILS % (AUTO) 0.7 % (0.0-2.0); EOSINOPHILS # (AUTO) 0.5 K/uL (0.0-0.7); EOSINOPHILS % (AUTO) 11.5 % (0.0-6.0); HEMATOCRIT 39 % (39-51); HEMOGLOBIN 12.8 g/dL (13.5-17.5); LYMPHOCYTES % (AUTO) 21.6 % (20.0-44.0); MEAN CORPUSCULAR HEMOGLOBIN 28 PG (26.0-33.0); MEAN CORPUSCULAR HGB CONC 33 g/dl (31.0-36.0); MEAN CORPUSCULAR VOLUME 87 fL (80-96); MONOCYTES # (AUTO) 0.6 K/uL (0.1-1.30); MONOCYTES % (AUTO) 12.8 % (2.0-12.0); NEUTROPHILS # (AUTO) 2.4 K/uL (1.8-8.9); NEUTROPHILS % (AUTO) 53.4 % (43.0-81.0); PLATELET COUNT (AUTO) 170 K/uL (150-450); RED BLOOD CELL COUNT(AUTO) 4.53 MIL/uL (4.5-6.0); RED CELL DISTRIBUTION WIDTH 15.6 % (11.5-15.0); WHITE BLOOD COUNT (AUTO) 4.6 K/uL (4.3-11.0)
[2024-12-07 06:47] LABS: CALCIUM, SERUM 8.4 mg/dL (8.5-10.1); CREATININE 1.1 mg/dL (0.6-1.3); MAGNESIUM 2.1 mg/dL (1.8-2.4); PHOSPHORUS 2.4 mg/dL (2.5-4.9); POTASSIUM 3.6 mmol/L (3.5-5.1)
[2024-12-07 08:00] VITALS: BP 134/63; TEMP 98.4; O2SAT 100
[2024-12-07 08:30] VITALS: BP 134/63; TEMP 98.4; O2SAT 100
[2024-12-07 12:00] VITALS: BP 130/59; TEMP 98.1; O2SAT 100
[2024-12-07] MEDS: K PHOS NEUTRAL 250 MG TABLET PO ONE (14:57)
== END 2024-12-07 17:17 | DRG 270 ==
LOC: ER 19:40 → MEDSG1 22:25 → ICU 12-05 13:21 → TELE 12-06 20:26
PROVIDERS: ADMIT Nurse Practitioner Family; ATTEND Nurse Practitioner Acute Care
PROC: B400YZZ Plain Radiography of Abdominal Aorta using Other Contrast (ICD-10-PCS; principal; 2024-12-05)
PROC: 04CM3ZZ Extirpation of Matter from Right Popliteal Artery, Percutaneous Approach (ICD-10-PCS; 2024-12-05)
PROC: 047R3ZZ Dilation of Right Posterior Tibial Artery, Percutaneous Approach (ICD-10-PCS; 2024-12-05)
PROC: 047M3ZZ Dilation of Right Popliteal Artery, Percutaneous Approach (ICD-10-PCS; 2024-12-05)
PROC: 047K3ZZ Dilation of Right Femoral Artery, Percutaneous Approach (ICD-10-PCS; 2024-12-05)
PROC: B44GZZZ Ultrasonography of Left Lower Extremity Arteries (ICD-10-PCS; 2024-12-05)
PROC: B41FYZZ Fluoroscopy of Right Lower Extremity Arteries using Other Contrast (ICD-10-PCS; 2024-12-05)
DX: T82.856A Stenosis of peripheral vascular stent, initial encounter (principal); G93.41 Metabolic encephalopathy; E11.52 Type 2 diabetes mellitus with diabetic peripheral angiopathy with gangrene; E87.20 Acidosis, unspecified; I69.354 Hemiplegia and hemiparesis following cerebral infarction affecting left non-dominant side; E44.1 Mild protein-calorie malnutrition; E87.1 Hypo-osmolality and hyponatremia; K57.32 Diverticulitis of large intestine without perforation or abscess without bleeding; N17.9 Acute kidney failure, unspecified; E11.65 Type 2 diabetes mellitus with hyperglycemia; Z66 Do not resuscitate; Z51.5 Encounter for palliative care; E78.5 Hyperlipidemia, unspecified; E88.09 Other disorders of plasma-protein metabolism, not elsewhere classified; I10 Essential (primary) hypertension; Z79.4 Long term (current) use of insulin; Z79.84 Long term (current) use of oral hypoglycemic drugs; B35.1 Tinea unguium; I25.2 Old myocardial infarction; N13.9 Obstructive and reflux uropathy, unspecified; E11.42 Type 2 diabetes mellitus with diabetic polyneuropathy; N40.1 Benign prostatic hyperplasia with lower urinary tract symptoms; Y83.8 Other surgical procedures as the cause of abnormal reaction of the patient, or of later complication, without mention of misadventure at the time of the procedure; F03.90 Unspecified dementia, unspecified severity, without behavioral disturbance, psychotic disturbance, mood disturbance, and anxiety; Z79.899 Other long term (current) drug therapy; Y81.8 Miscellaneous general- and plastic-surgery devices associated with adverse incidents, not elsewhere classified; Y92.129 Unspecified place in nursing home as the place of occurrence of the external cause; Z68.20 Body mass index [BMI] 20.0-20.9, adult
CPT/HCPCS: 36415; 71045-TC; 73030-TC; 73630-TC; 80048-TC; 80053-TC; 80061-TC; 80076-TC; 81001; 82962-TC; 83605-TC; 83735-TC; 84100-TC; 84300-TC; 84443-TC; 84550-TC; 85025-TC; 85347; 85730-TC; 87040-TC; 87081-TC; 87086-TC; 92526; 92611-TC; 97110-TC; 97112-TC; 97530-TC; A4223; A6403; G0378; J0690; J0692; J1644; J1815; J2543; J3370; J3490; J7030; J7040; J7050; J7060; Q9967

== ENCOUNTER 2024-12-11 13:38 | Inpatient (IN) | payer OTHER ==
[~2024-12-11] VITALS: Ht 165.1 cm; Wt 50.8 kg
[2024-12-11] MEDS ORDERED: VANCOMYCIN 1 GM /D5W 250 ML PB IV ONE (14:56)
[2024-12-11] MEDS: VANCOMYCIN 1 GM in IV D5W 250 ML IV ONE (15:02)
[2024-12-11 15:05] LABS: BASOPHILS % (AUTO) 0.7 % (0.0-2.0); EOSINOPHILS # (AUTO) 0.5 K/uL (0.0-0.7); EOSINOPHILS % (AUTO) 12.4 % (0.0-6.0); HEMATOCRIT 38 % (39-51); HEMOGLOBIN 12.9 g/dL (13.5-17.5); LYMPHOCYTES # (AUTO) 0.9 K/uL (0.8-4.8); LYMPHOCYTES % (AUTO) 20.1 % (20.0-44.0); MEAN CORPUSCULAR HEMOGLOBIN 29 PG (26.0-33.0); MEAN CORPUSCULAR HGB CONC 34 g/dl (31.0-36.0); MEAN CORPUSCULAR VOLUME 85 fL (80-96); MONOCYTES # (AUTO) 0.4 K/uL (0.1-1.30); MONOCYTES % (AUTO) 10.1 % (2.0-12.0); NEUTROPHILS # (AUTO) 2.4 K/uL (1.8-8.9); NEUTROPHILS % (AUTO) 56.7 % (43.0-81.0); PLATELET COUNT (AUTO) 222 K/uL (150-450); RED CELL DISTRIBUTION WIDTH 16.2 % (11.5-15.0); WHITE BLOOD COUNT (AUTO) 4.3 K/uL (4.3-11.0)
[2024-12-11 15:15] LABS: CALCIUM, SERUM 9.5 mg/dL (8.5-10.1); CARBON DIOXIDE 26 mmol/L (21-32); CHLORIDE 103 mmol/L (98-107); CREATININE 1.1 mg/dL (0.6-1.3); GLUCOSE 123 mg/dL (74-106); SODIUM SERUM 140 mmol/L (136-145); UREA NITROGEN, BLOOD 12 mg/dL (7-18)
[2024-12-11 15:18] LABS: INR 0.99 (0.91-1.10); PARTIAL THROMBOPLASTIN TIME 40.4 SEC (24.3-34.3); PROTHROMBIN TIME 10.5 SECS (9.2-11.1)
[2024-12-11 15:21] LABS: ALANINE AMINOTRANSFERASE 23 U/L (12-78); ALBUMIN 3.2 g/dL (3.4-5.0); ALKALINE PHOSPHATASE 85 U/L (46-116); ASPARTATE AMINOTRANSFERASE 23 U/L (15-37); BILIRUBIN,DIRECT 0.2 mg/dL (0.0-0.2); BILIRUBIN,TOTAL 0.5 mg/dL (0.2-1.0); TOTAL PROTEIN, SERUM 7.6 g/dL (6.4-8.2)
[2024-12-11] MEDS ORDERED: NEOM1OIN15 TP (15:57)
[2024-12-11] MEDS ORDERED: MAGN400O6 PO (15:57)
[2024-12-11] MEDS ORDERED: ZINC454O5 TP (15:57)
[2024-12-11] MEDS ORDERED: NA P133E RC (15:57)
[2024-12-11 16:32] LABS: APPEARANCE,URINE CLEAR (CLEAR); BILIRUBIN,URINE NEGATIVE (NEGATIVE); BLOOD, URINE NEGATIVE Ery/uL (NEGATIVE); COLOR,URINE YELLOW (YELLOW); KETONES,URINE NEGATIVE (NEGATIVE); LEUKOCYTE ESTERASE ,URINE NEGATIVE (NEGATIVE); NITRITE, URINE NEGATIVE (NEGATIVE); PROTEIN,URINE NEGATIVE (NEGATIVE); UGLUCOSE NEGATIVE (NEGATIVE)
[2024-12-11 16:38] LABS: ADD URINE CULTURE NO; BACTERIA,URINE Rare /HPF (None Seen); MUCUS,URINE Few /LPF (None Seen); RBC,URINE 0-2 /HPF (0-2); SQUAMOUS EPITHELIAL CELL,UR Rare /HPF (None Seen); WBC,URINE 0-2 /HPF (0-3)
[2024-12-11] MEDS ORDERED: ACETAMINOPHEN 325 MG TABLET PO PRN (17:00)
[2024-12-11] MEDS ORDERED: ONDANSETRON HCL/PF 4 MG/2 ML VIAL IVP PRN (17:00)
[2024-12-11] MEDS: ENOXAPARIN SODIUM 40 MG/0.4 ML DISP.SYRIN SQ SCH (18:52)
[2024-12-11] MEDS: BLOOD SUGAR DIAGNOSTIC 1 EACH STRIP IN SCH (18:52)
[2024-12-11] MEDS: INSULIN REGULAR, HUMAN 100 UNIT/ML 3 ML VIAL SQ PRN (18:58)
[2024-12-11 20:00] VITALS: BP 121/54; TEMP 97.2; O2SAT 99
[2024-12-11] MEDS: CARVEDILOL 6.25 MG TABLET PO SCH (20:00)
[2024-12-11] MEDS ORDERED: GABAPENTIN 100 MG CAPSULE PO SCH (20:00)
[2024-12-11] MEDS: ZOSYN IVPB 3.375 G in IV D5W 50ml IV ONE (20:22)
[2024-12-11] MEDS: DOCUSATE SODIUM 100 MG CAPSULE PO SCH (20:39)
[2024-12-11] MEDS: glipiZIDE 5 MG TABLET PO SCH (20:39)
[2024-12-11] MEDS: ZINC OXIDE 56.7 GM TUBE TP SCH (20:39)
[2024-12-11] MEDS: METFORMIN 500 MG TABLET PO SCH (20:39)
[2024-12-12] MEDS: PIPERACILLIN /TAZOBACTAM 3.375 G in IV D5W 100 ML IV SCH (03:25)
[2024-12-12 07:00] VITALS: BP 127/58; TEMP 97.9; O2SAT 98
[2024-12-12 07:55] LABS: BASOPHILS % (AUTO) 0.6 % (0.0-2.0); EOSINOPHILS # (AUTO) 0.6 K/uL (0.0-0.7); EOSINOPHILS % (AUTO) 13.3 % (0.0-6.0); HEMATOCRIT 37 % (39-51); HEMOGLOBIN 12.2 g/dL (13.5-17.5); LYMPHOCYTES # (AUTO) 1.1 K/uL (0.8-4.8); LYMPHOCYTES % (AUTO) 24.6 % (20.0-44.0); MEAN CORPUSCULAR HEMOGLOBIN 28 PG (26.0-33.0); MEAN CORPUSCULAR HGB CONC 33 g/dl (31.0-36.0); MEAN CORPUSCULAR VOLUME 86 fL (80-96); MONOCYTES # (AUTO) 0.4 K/uL (0.1-1.30); MONOCYTES % (AUTO) 8.9 % (2.0-12.0); NEUTROPHILS # (AUTO) 2.3 K/uL (1.8-8.9); NEUTROPHILS % (AUTO) 52.6 % (43.0-81.0); PLATELET COUNT (AUTO) 206 K/uL (150-450); RED BLOOD CELL COUNT(AUTO) 4.36 MIL/uL (4.5-6.0); RED CELL DISTRIBUTION WIDTH 16.4 % (11.5-15.0); WHITE BLOOD COUNT (AUTO) 4.4 K/uL (4.3-11.0)
[2024-12-12 08:08] LABS: CALCIUM, SERUM 8.6 mg/dL (8.5-10.1); PHOSPHORUS 3.6 mg/dL (2.5-4.9); POTASSIUM 3.5 mmol/L (3.5-5.1)
[2024-12-12] MEDS: MULTIVIT W/MINERALS 1 TAB TABLET PO SCH (08:56)
[2024-12-12] MEDS: CYANOCOBALAMIN 500 MCG TABLET PO SCH (08:57)
[2024-12-12] MEDS: ASPIRIN EC 81 MG TABLET.DR PO SCH (08:57)
[2024-12-12] MEDS: HYDROCHLOROTHIAZIDE 25 MG TABLET PO SCH (08:57)
[2024-12-12] MEDS: LISINOPRIL (5MG) 5 MG TABLET PO SCH (08:57)
[2024-12-12] MEDS: GABAPENTIN 100 MG CAPSULE PO SCH (08:58)
[2024-12-12] MEDS: HEPARIN SODIUM, PORCINE 5000 UNITS/1 ML VIAL SQ SCH (08:59)
[2024-12-12] MEDS: NEOMY SULF/BACITRAC ZN/POLY 15 GM TUBE TP SCH (08:59)
[2024-12-12] MEDS: TICAGRELOR 90 MG TABLET PO SCH (09:02)
[2024-12-12] MEDS ORDERED: VANCOMYCIN 1 GM in IV D5W 250ml IV SCH (15:00)
[2024-12-12] MEDS: VANCOMYCIN HCL 1.25 GM in IV D5W 250 ML IV SCH (15:33)
[2024-12-12 16:00] VITALS: BP 121/56; TEMP 97.5; O2SAT 99
[2024-12-12 20:00] VITALS: BP 122/60; TEMP 97.7; O2SAT 98
[2024-12-12] MEDS: DEXTROSE 50%-WATER 50 ML DISP.SYRIN IV PRN (21:06)
[2024-12-13 07:00] VITALS: BP 126/57; TEMP 97.2; O2SAT 99
[2024-12-13 07:15] LABS: CALCIUM, SERUM 8.9 mg/dL (8.5-10.1)
[2024-12-13 16:00] VITALS: BP 116/73; TEMP 98.2; O2SAT 99
[2024-12-13 20:42] VITALS: BP 131/58; TEMP 98.2; O2SAT 98
[2024-12-14 07:33] LABS: CALCIUM, SERUM 8.4 mg/dL (8.5-10.1); POTASSIUM 4.2 mmol/L (3.5-5.1)
[2024-12-14 08:00] VITALS: BP 118/58; TEMP 98.1; O2SAT 97
[2024-12-14 16:37] VITALS: BP 99/60; TEMP 97.2; O2SAT 99
[2024-12-14 20:00] VITALS: BP 112/46; TEMP 97.9; O2SAT 100
[2024-12-15 07:03] LABS: CALCIUM, SERUM 8.8 mg/dL (8.5-10.1); CREATININE 1.2 mg/dL (0.6-1.3); POTASSIUM 3.6 mmol/L (3.5-5.1)
[2024-12-15 08:00] VITALS: BP 116/53; TEMP 97.7; O2SAT 100
[2024-12-15 16:00] VITALS: BP 114/55; TEMP 97.7; O2SAT 95
[2024-12-15] MEDS: GLUCERNA SHAKE 237 ML CAN PO SCH (17:00)
[2024-12-15 20:00] VITALS: BP 128/60; TEMP 98.4; O2SAT 100
[2024-12-16 06:28] LABS: BASOPHILS % (AUTO) 0.5 % (0.0-2.0); EOSINOPHILS # (AUTO) 0.4 K/uL (0.0-0.7); EOSINOPHILS % (AUTO) 9.6 % (0.0-6.0); HEMATOCRIT 38 % (39-51); HEMOGLOBIN 12.5 g/dL (13.5-17.5); LYMPHOCYTES # (AUTO) 1.2 K/uL (0.8-4.8); LYMPHOCYTES % (AUTO) 26.4 % (20.0-44.0); MEAN CORPUSCULAR HEMOGLOBIN 28 PG (26.0-33.0); MEAN CORPUSCULAR HGB CONC 33 g/dl (31.0-36.0); MEAN CORPUSCULAR VOLUME 85 fL (80-96); MONOCYTES # (AUTO) 0.5 K/uL (0.1-1.30); MONOCYTES % (AUTO) 11.1 % (2.0-12.0); NEUTROPHILS # (AUTO) 2.4 K/uL (1.8-8.9); NEUTROPHILS % (AUTO) 52.4 % (43.0-81.0); PLATELET COUNT (AUTO) 201 K/uL (150-450); RED BLOOD CELL COUNT(AUTO) 4.44 MIL/uL (4.5-6.0); RED CELL DISTRIBUTION WIDTH 16.2 % (11.5-15.0); WHITE BLOOD COUNT (AUTO) 4.6 K/uL (4.3-11.0)
[2024-12-16 06:32] LABS: CREATININE 1.1 mg/dL (0.6-1.3); MAGNESIUM 2.3 mg/dL (1.8-2.4); PHOSPHORUS 2.9 mg/dL (2.5-4.9); POTASSIUM 3.8 mmol/L (3.5-5.1)
[2024-12-16 07:00] VITALS: BP 125/79; TEMP 97.9; O2SAT 98
[2024-12-16] MEDS: CIPROFLOXACIN IV RTU 400 MG in PREMIX 1 EA IV SCH (09:51)
[2024-12-16 16:00] VITALS: BP 145/65; TEMP 97.9; O2SAT 99
[2024-12-16 20:32] VITALS: BP 124/60; TEMP 98.2; O2SAT 100
[2024-12-17 07:57] LABS: CALCIUM, SERUM 8.9 mg/dL (8.5-10.1); CREATININE 1.1 mg/dL (0.6-1.3); POTASSIUM 3.9 mmol/L (3.5-5.1)
[2024-12-17 08:00] VITALS: BP 138/64; TEMP 98.2; O2SAT 99
[2024-12-17 16:00] VITALS: BP 110/66; TEMP 98.1; O2SAT 94
[2024-12-17 20:00] VITALS: BP 125/60; TEMP 97.7; O2SAT 95
[2024-12-17] MEDS ORDERED: VANCOMYCIN 1 GM /D5W 250 ML PB IV ONE (22:36)
[2024-12-17] MEDS: VANCOMYCIN 1 GM in IV D5W 250ml IV ONE (22:37)
[2024-12-18 07:20] LABS: CALCIUM, SERUM 8.9 mg/dL (8.5-10.1); POTASSIUM 3.7 mmol/L (3.5-5.1)
[2024-12-18 08:00] VITALS: BP 120/52; TEMP 98.2; O2SAT 94
[2024-12-18 08:46] VITALS: BP 120/52
[2024-12-18] MEDS ORDERED: VANCOMYCIN HCL 1.25 GM in IV D5W 250 ML IV SCH (22:00)
== END 2024-12-18 12:20 | DRG 299 ==
LOC: ER 13:45 → MED 17:20
PROVIDERS: ADMIT Nurse Practitioner Acute Care; ATTEND Nurse Practitioner Acute Care
PROC: 02HV33Z Insertion of Infusion Device into Superior Vena Cava, Percutaneous Approach (ICD-10-PCS; principal; 2024-12-18)
DX: E11.52 Type 2 diabetes mellitus with diabetic peripheral angiopathy with gangrene (principal); G93.41 Metabolic encephalopathy; L97.515 Non-pressure chronic ulcer of other part of right foot with muscle involvement without evidence of necrosis; M84.674A Pathological fracture in other disease, right foot, initial encounter for fracture; M86.8X7 Other osteomyelitis, ankle and foot; E44.1 Mild protein-calorie malnutrition; I69.354 Hemiplegia and hemiparesis following cerebral infarction affecting left non-dominant side; N13.8 Other obstructive and reflux uropathy; I70.261 Atherosclerosis of native arteries of extremities with gangrene, right leg; Z53.29 Procedure and treatment not carried out because of patient's decision for other reasons; E11.69 Type 2 diabetes mellitus with other specified complication; E11.42 Type 2 diabetes mellitus with diabetic polyneuropathy; E11.65 Type 2 diabetes mellitus with hyperglycemia; E11.621 Type 2 diabetes mellitus with foot ulcer; L03.031 Cellulitis of right toe; B95.8 Unspecified staphylococcus as the cause of diseases classified elsewhere; E78.5 Hyperlipidemia, unspecified; R60.9 Edema, unspecified; B35.1 Tinea unguium; E88.09 Other disorders of plasma-protein metabolism, not elsewhere classified; N40.1 Benign prostatic hyperplasia with lower urinary tract symptoms; I25.2 Old myocardial infarction; I25.10 Atherosclerotic heart disease of native coronary artery without angina pectoris; I10 Essential (primary) hypertension; I44.0 Atrioventricular block, first degree; F03.90 Unspecified dementia, unspecified severity, without behavioral disturbance, psychotic disturbance, mood disturbance, and anxiety; Z79.84 Long term (current) use of oral hypoglycemic drugs; Z95.820 Peripheral vascular angioplasty status with implants and grafts; T82.856D Stenosis of peripheral vascular stent, subsequent encounter; Z79.4 Long term (current) use of insulin; Z79.899 Other long term (current) drug therapy; Z79.02 Long term (current) use of antithrombotics/antiplatelets
CPT/HCPCS: 36415; 71045-TC; 73630-TC; 73718-TC; 80048-TC; 80076-TC; 80202-TC; 81001; 82962-TC; 83605-TC; 83735-TC; 84100-TC; 84484-TC; 85025-TC; 85652-TC; 85730-TC; 86140-TC; 87040-TC; 87081-TC; 87086-TC; A4216; A4223; A6403; G0378; J0744; J1644; J1650; J1815; J2543; J3370; J7050; J7060